=== PATIENT | female | born 1965 | race Caucasian/White ===

== ENCOUNTER 2017-01-18 04:45 | Inpatient (IN) | payer MEDICARE ==
[2017-01-18 04:45] VITALS: BMI 29.9
--- NOTE | 2017-01-18 05:09 | C.PDOC ---
History Of Present Illness <Marisa Haskins - Last Filed: 01/18/17 06:53> <Radha Angel - Last Filed: 01/21/17 16:16> 51 year old female, whose PMHx includes alcohol abuse and depression, presents to the ED requesting alcohol detox. Patient also states she has been very depressed and "needs help." Patient has been noncompliant with her prescribed psychiatric medications. 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 She denies suicidal/homicidal ideation and has no other complaints at this time. ( Marisa Haskins) History Per: Patient History/Exam Limitations: intoxication Onset/Duration Of Symptoms: Hrs (2) Current Symptoms Are (Timing): Still Present Suicide/Self Injury Attempted (Context): None Modifying Factor(s): Alcohol Associated Symptoms: Depression. denies: Suicidal Thoughts, Suicidal Plan Involuntary Hold By: None Recent travel outside of the [place]: No Additional History Per: Patient <Marisa Haskins - Last Filed: 01/18/17 06:53> <Radha Angel - Last Filed: 01/21/17 16:16> Time Seen by Provider: 01/18/17 05:01 Chief Complaint (Nursing): Substance Abuse Past Medical History Reviewed: Historical Data, Nursing Documentation, Vital Signs - Medical History PMH: Asthma, Back Problems, Depression, HTN, Hypercholesterolemia Surgical History: Back Surgery Family History: States: Unknown Family Hx - Social History Hx Tobacco Use: No Hx Alcohol Use: Yes Hx Substance Use: Yes (former opioid abuse) - Immunization History Hx Tetanus Toxoid Vaccination: No Hx Influenza Vaccination: Yes Hx Pneumococcal Vaccination: No <Marisa Haskins - Last Filed: 01/18/17 06:53> Vital Signs: Last Vital Signs Temp 97.9 F 01/21/17 15:40 Pulse 93 H 01/21/17 15:40 Resp 18 01/21/17 15:40 BP 133/79 01/21/17 15:40 Pulse Ox 98 01/21/17 15:40 - [facility] Procedures CORONAR ARTERIOGR-2 CATH (12/09/03) LEFT HEART CARDIAC CATH (12/09/03) LT HEART ANGIOCARDIOGRAM (12/09/03) Review Of Systems Psych: Positive for: Depression, Other (EtOH detox ). Negative for: Suicidal ideation <Marisa Haskins - Last Filed: 01/18/17 06:53> Physical Exam - Physical Exam Appears: Non-toxic, No Acute Distress, Other (anxious and upset, but consolable ) Skin: Normal Color, Warm, Dry Oral Mucosa: Moist, Other (alcohol on breath ) Neck: Supple Chest: Symmetrical, No Deformity, No Tenderness Cardiovascular: Rhythm Regular Respiratory: Normal Breath Sounds Extremity: Normal ROM, Capillary Refill (less than 2 seconds ) Neurological/Psych: Oriented x3, Normal Speech, Normal Cognition Gait: Steady <Marisa Haskins - Last Filed: 01/18/17 06:53> ED Course And Treatment - Laboratory Results Result Diagrams: 01/18/17 05:17 01/18/17 05:17 O2 Sat by Pulse Oximetry: 97 (on RA) Pulse Ox Interpretation: Normal Progress Note: Bloodwork and UA ordered and reviewed. Case discussed with experimental worker, Carol, who will evaluate the patient at bedside. Pt with ETOH level of 390- pending sobrietyy for psych eval <Marisa Haskins - Last Filed: 01/18/17 06:53> - Laboratory Results Result Diagrams: 01/18/17 05:17 01/18/17 05:17 <Radha Angel - Last Filed: 01/21/17 16:16> Disposition - Disposition Disposition Time: 06:55 <Marisa Haskins - Last Filed: 01/18/17 06:53> - Disposition Disposition Time: 14:53 <Radha Angel - Last Filed: 01/21/17 16:16> - Disposition Disposition: HOSPITALIZED Condition: STABLE - Clinical Impression Clinical Impression: Alcohol intoxication, Alcohol dependence - PA / GRAPHICS SPECIALIST / Resident Statement MD/DO has reviewed & agrees with the documentation as recorded. - Scribe Statement The provider has reviewed the documentation as recorded by the Scribe (Brooklyn Ornelas) <Marisa Haskins - Last Filed: 01/18/17 06:53> <Radha Angel - Last Filed: 01/21/17 16:16> - Scribe Statement All medical record entries made by the Scribe were at my direction and personally dictated by me. I have reviewed the chart and agree that the record accurately reflects my personal performance of the history, physical exam, medical decision making, and the department course for this patient. I have also personally directed, reviewed, and agree with the discharge instructions and disposition. (Marisa Haskins) Physician Patient Turnover Patient Signed Over To: Radha Angel Handoff Comments: Pending sobriety for psych evaluation <Marisa Haskins - Last Filed: 01/18/17 06:53> Addendum <Marisa Haskins - Last Filed: 01/18/17 06:53> <Radha Angel - Last Filed: 01/21/17 16:16> Addendum: 01/18/17 08:15 Patient sleeping, arousable to verbal stimuli - pending sobriety. 01/18/17 13:45 Patient awake, alert & oriented. S/P PO meal. Breathalyzer 64. Spoke with crisis counselor, they will come evaluate patient. 01/18/17 14:50 Patient accepted for alcohol detox admission by Dr. Mathew. (Radha Angel)
[2017-01-18 05:19] LABS: BASO % 0.7 % (0.0-2.0); HEMATOCRIT 40.5 % (34.0-47.0); LYMPH # 1.6 K/uL (1.0-4.3); LYMPH % 44.6 % (20.0-40.0); MEAN CORPUSCULAR HEMOGLOBIN 30.1 pg (27.0-31.0); MEAN CORPUSCULAR HGB CONC 32.7 g/dL (33.0-37.0); MEAN PLATELET VOLUME 7.2 fL (7.2-11.7); MONO % 16.9 % (0.0-10.0); RED CELL DISTRIBUTION WIDTH 16.3 % (11.5-14.5); WHITE BLOOD COUNT 3.5 K/uL (4.8-10.8)
[2017-01-18 05:20] LABS: MONO # 0.6 K/uL (0.0-0.8)
[2017-01-18 05:30] LABS: RBC URINE 1 /hpf (0-3); URINE BILIRUBIN NEGATIVE (NEGATIVE); URINE BLOOD NEGATIVE (NEGATIVE); URINE COLOR Yellow (YELLOW); URINE GLUCOSE (UA) NORMAL (Normal); URINE KETONE NEGATIVE (NEGATIVE); URINE LEUKOCYTE ESTERASE 1+ Leu/uL (Negative); URINE PROTEIN NEGATIVE (NEGATIVE); WBC URINE 4 /hpf (0-5)
[2017-01-18 05:41] LABS: ALB/GLOB RATIO 1.4 (1.0-2.1); ALKALINE PHOSPHATASE 87 U/L (38-126); ALT/SGPT 102 U/L (9-52); AST/SGOT 87 U/L (14-36); BILIRUBIN,TOTAL 0.6 mg/dL (0.2-1.3); BLOOD UREA NITROGEN 11 mg/dL (7-17); CALCIUM 8.7 mg/dl (8.6-10.4); CARBON DIOXIDE 26 mmol/L (22-30); CHLORIDE 107 mmol/L (98-107); GFR AFRICAN-AMERICAN > 60; GLUCOSE,RANDOM 95 mg/dL (65-105); POTASSIUM 3.4 mmol/L (3.6-5.2); SODIUM 148 mmol/L (132-148); TOTAL PROTEIN 7.8 g/dL (6.3-8.3)
[2017-01-18 06:42] LABS: ALCOHOL SERUM 392 mg/dl (0-10)
[2017-01-18] MEDS: Multiple Vitamins Tab PO SCH (16:24)
--- NOTE | 2017-01-18 19:04 | PCM.BM ---
<Rizwana Medina - Last Filed: 01/18/17 19:03> Treatment Plan Problems - Problems identified on initial assessmt Potential for alcohol withdrawal Date Initiated: 01/18/17 Time Initiated: 19:04 Assessment reference: NA Status: Active Priority: 1 Treatment assets and liabiliti Patient Assests: cooperative, ADL independent, negotiates basic needs, cognitively intact Patient Liabilities: substance abuse (ETOH) - Milieu Protocol Maintain good personal hygiene: daily Encourage regular showers, daily Remind patient to perform daily oral care, daily Assist patient to perform ADL's Maintain personal safety: every shift Educate patient to report safety concerns to staff, every shift Monitor environment for contraband/sharps Medication safety: Monitor for expected outcome, potential side effects: every shift, Assess barriers to learning: every shift, Assess readiness for medication education: every shift <Brunilda Elizabeth - Last Filed: 01/19/17 15:23> Family Contact Family involvement: Famliy/SO not involved Family contact: Patient declines to allow family contact at present - Goals for Treatment Patient goals for treatment: Complete detox and attend [facility] in [place], [place]. Discharge/Continuing Care - Education Needs Education Needs: Patient Medication, Patient Diagnosis/Disease Process, Patient Coping Skills, Patient Anger Management skills, Patient Placement options, Patient Community resources - Discharge Discharge Criteria: No longer exhibiting s/s of withdrawal, Reduction of target symptoms Discharge to:: Home, With Family - Treatment Team Participation Patient/Family/SO Statement: 01/19/17 15:24 "I wanna go to [facility]." Discussed with Family/SO: No Was Patient/Family/SO present at Treatment Team Meeting: Yes <Lety Mathew - Last Filed: 01/20/17 11:43> - Diagnosis (1) Alcohol use disorder, severe, dependence Status: Acute Interventions: 01/20/17 11:43 * Assess 7x/week regarding severity of withdrawal * Educate regarding risks, benefits, side effects and alternatives of medications * Use Motivational Interviewing for abstinence * Use CBT for relapse prevention * Medication management for withdrawal symptoms * Encourage medication assisted treatment *
[2017-01-19] MEDS: Multiple Vitamins Tab PO SCH (10:34)
--- NOTE | 2017-01-19 14:35 | PCM.PSYCH ---
Initial Psychiatric Evaluation - Initial Psychiatric Evaluation Type of Admission: Voluntary Legal Status: Capacity Chief Complaint (in patient's own words): "I want to stop drinking" History of Present Illness and Precipitating Events: This is a 57 year old female who lives alone. She is with one adult daughter (age 35). She is unemployed and receives disability for financial support. Patient reports alcohol use, "3 big bottles of whiskey or estefania." She states, "I drank just socially at parties until 2014, then I really started to drink more." She denies any other drug use. She reports tobacco use at 1 ppd. Patient reports increased feelings of anxiety and some depression at times, stating "I cry a lot recently and don't know why." She states she feels isolated and cannot sleep. She denies any auditory or visual hallucinations. She denies any suicidal or homicidal ideations. She hopes to attend an IOP program after leaving detox. Past medical history: HTN, HLD Past psychiatric history: anxiety, depression Family psychiatric history: denies Family substance use: daughter drinks socially, brother drinks socially Current Medications: Active Medications Generic Name Dose Route Start Last Admin Trade Name Freq PRN Reason Stop Dose Admin Chlordiazepoxide 25 mg 01/18/17 18:00 01/19/17 12:32 Librium PO 01/22/17 17:59 25 mg Q6 [facility] Administration Taper Chlordiazepoxide 25 mg 01/18/17 15:59 01/18/17 16:24 Librium PO 25 mg Q4H PRN Administration Alcohol Withdrawal Clonidine HCl 0.1 mg 01/18/17 15:59 01/19/17 13:33 Catapres PO 0.1 mg Q4H PRN Administration Symptoms of alcohol withdrawl Folic Acid 1 mg 01/18/17 16:00 01/19/17 10:34 Folic Acid PO 1 mg DAILY [facility] Administration Gabapentin 100 mg 01/19/17 14:00 01/19/17 13:37 Neurontin PO 100 mg TID [facility]AI Administration Hydroxyzine HCl 25 mg 01/18/17 18:41 01/18/17 21:25 Atarax PO 25 mg Q4H PRN Administration Anxiety Ibuprofen 600 mg 01/18/17 18:41 Motrin Tab PO Q6H PRN Pain, moderate (4-7) Multivitamins 1 tab 01/18/17 16:00 01/19/17 10:34 Hexavitamin PO 1 tab DAILY [facility] Administration Nicotine 1 patch 01/18/17 15:50 01/19/17 10:35 Nicoderm Cq TD 1 patch DAILY [facility] Administration Thiamine HCl 100 mg 01/18/17 16:00 01/19/17 10:34 Vitamin B1 Tab PO 100 mg DAILY [facility] Administration Trazodone HCl 100 mg 01/19/17 10:30 Desyrel PO HS PRN Insomnia Past Psychiatric History - Past Psychiatric History Pertinent Medical Hx (Current Medical&Sleep Prob, Allergies): Allergies Allergy/AdvReac Type Severity Reaction Status Date / Time ibuprofen AdvReac ANAPHYLAXIS Verified 01/18/17 04:56 oxycodone HCl AdvReac ANAPHYLAXIS Verified 01/18/17 04:56 [From OxyContin] Unknown Cholesterol Med 01/18/17 Unknown Hypertension Med 01/18/17 Unknown Sleep Aid 01/18/17 Review of Systems - Review of Systems All systems: reviewed and no additional remarkable complaints except - Neurological Neurological: absent: Convulsions, Tremor - Psychiatric Psychiatric: Anxiety, Depression, Hopelessness, Irritability. absent: Auditory Hallucinations, Homicidal Ideation, Suicidal Ideation, Visual Hallucinations Mental Status Examination - Personal Presentation Personal Presentation: Looks older than stated age - Affect Affect: Constricted, Depressed - Motor Activity Motor Activity: Calm - Reliability in Providing Information Reliability in Providing Information: Fair - Speech Speech: Organized - Mood Mood: Depressed, Anxious - Formal Thought Process Formal Thought Process: No Impairment - Obsessions/Compulsions Obsessions: No Compulsions: No - Cognitive Functions Orientation: Person, Place, Situation, Time Sensorium: Alert Attention/Concentration: Attentive Abstract Thinking: [place] Estimate of Intelligence: Average Judgement: Intact, as evidence by: Insight regarding need for hospitalization Memory: Recent intact, as evidence by: Ability to recall events of the day, Remote intact, as evidenced by: Abilit to recall sig. life events - Risk Risk: Diminished functioning - Strength & Assets Inventory Strength & Assets Inventory: Family support, Cooperative - Limitations Limitations: Other DSM 5 DX - DSM 5 DSM 5 Diagnosis: Alcohol use disorder, severe Alcohol withdrawal Tobacco use disorder, severe - Recommended/Plan of Treatment Treatment Recommendations and Plan of Treatment: Librium detox Gabapentin for augmentation As needed medications Attend groups and activities Supportive therapy and psychoeducation ME for abstinence CBT for relapse prevention Encourage MAT Refer to rehab or IOP, and self-help groups. Smoking cessation with ME Nicotine patch 32 min Projected ELOS: 4-5 days Prognosis: Good with treatment Discharge Plan and Discharge Criteria: No withdrawal symptoms Refer to rehab - Smoking Cessation Smoking Cessation Initiated: Yes
[2017-01-19] MEDS: Aluminum Hydroxide/Magnesium Hydroxide Susp (30 mL) PO PRN (19:18)
[2017-01-20] MEDS: Multiple Vitamins Tab PO SCH (09:18)
--- NOTE | 2017-01-20 09:26 | PCM.PYCHPN ---
Psychiatric Progress Note - Psychiatric Progress Note Patient seen today, length of contact: 15 min Patient Chief Complaint: I am still withdrawing.' Problems Identified/Issues Discussed: Patient seen and evaluated, chart reviewed and discussed with the nurse. Patient still reports withdrawal symptoms including anxiety, headaches, and sweating. She reports irritable mood but denies any feelings of hopelessness and helplessness. She denies any SI/HI/AVH. Patient remained isolated, and withdrawn. She is taking medication and denies any side effects. She needs more time for stabilization. Supportive therapy and psychoeducation were given. Medication Change: Yes (Librium taper) Medical Record Reviewed: Yes Mental Status Examination - Cognitive Function Orientation: Person, Place, Situation, Time Memory: Intact Attention: WNL Concentration: WNL Association: WNL Fund of Knowledge: Poor - Mood Mood: Depressed, Anxious - Affect Affect: Constricted, Depressed - Speech Speech: Soft - Formal Thought Process Formal Thought Process: No Impairment - Suicidal Ideation Suicidal Ideation: No - Homicidal Ideation Homicidal Ideation: No Goal/Treatment Plan - Goal/Treatment Plan Need for Continued Stay: Severe depression anxiety, Severe functional impairment Progress Toward Problem(s) and Goals/Treatment Plan: Alcohol use disorder, severe Alcohol withdrawal Tobacco use disorder, severe Librium detox Gabapentin for augmentation As needed medications Attend groups and activities Supportive therapy and psychoeducation CA for abstinence CBT for relapse prevention Encourage MAT Refer to rehab or IOP, and self-help groups. Smoking cessation with CA Nicotine patch - Smoking Cessation Smoking Cessation Initiated: No
[2017-01-20] MEDS: Aluminum Hydroxide/Magnesium Hydroxide Susp (30 mL) PO PRN (21:00)
[2017-01-21 06:35] VITALS: RESP 18
[2017-01-21] MEDS ORDERED: Ergocalciferol 50,000 Intl Units Cap PO SCH (10:00)
[2017-01-21] MEDS: Multiple Vitamins Tab PO SCH (10:23)
--- NOTE | 2017-01-21 19:07 | PCM.PYCHPN ---
Psychiatric Progress Note - Psychiatric Progress Note Patient seen today, length of contact: 15 min Patient Chief Complaint: I am feeling much better. Problems Identified/Issues Discussed: Patient seen, chart reviewed, case discussed with the staff. Issues related to illness and treatment were discussed with the patient and staff. Patient reported compliant with treatment with no adverse effects. Tolerating treatment very well. Aftercare discussed with the patient. At the time of evaluation, patient was awake, alert and oriented 3, had no delusions, no auditory or visual hallucinations, no suicidal ideations or homicidal ideations. Medical Problems: Hypertension HDL Diagnostic Results: Reviewed DSM 5 Symptoms Update: Improving with treatment Medication Change: No Medical Record Reviewed: Yes Mental Status Examination - Cognitive Function Orientation: Person, Place, Situation, Time Memory: Intact Attention: WNL Concentration: WNL Association: WNL Fund of Knowledge: [facility] Decription of patient's judgement and insights: Fair - Mood Mood: Neutral - Affect Affect: Other (Appropriate) - Speech Speech: Soft - Formal Thought Process Formal Thought Process: No Impairment Psychotic Thoughts and Behaviors: None - Suicidal Ideation Suicidal Ideation: No - Homicidal Ideation Homicidal Ideation: No Goal/Treatment Plan - Goal/Treatment Plan Need for Continued Stay: Remain at risks for inpatient hospitalization, Discharge may exacerbated symptoms, Severe functional impairment Progress Toward Problem(s) and Goals/Treatment Plan: Patient education Supportive therapy Continue treatment as before [facility] for follow-up care after discharge from the hospital Estimated Date of D/C: 01/22/17 - Smoking Cessation Smoking Cessation Initiated: Yes
[2017-01-22] MEDS: Multiple Vitamins Tab PO SCH (09:15)
--- NOTE | 2017-01-22 09:44 | PCM.PYCHDC ---
Mental Status Examination - Mental Status Examination Orientation: Person, Place, Situation, Time Memory: Intact Mood: Anxious Affect: Constricted Speech: Appropriate Attention: WNL Concentration: Poor Association: WNL Fund of Knowledge: WNL Formal Thought Process: No Impairment Suicidal Ideation: No Current Homicidal Ideation?: No Discharge Summary - Discharge Note Reason for Hospitalization: Alcohol detox Consultations:: List each consultation separately and include: 1. Reason for request. 2. Findings. 3. Follow-up Summary of Hospital Course include:: 1. Description of specific treatment plan utilized for patients during their course of treatmen. 2. Summarize the time- course for resolution of acute symptoms and/or regressed behaviors. 3. Describe issues identified and worked on during hospitalization. 4. Describe medication utilized. 5. Describe medical problems identified and treated. 6. Reassessment of suicide risk Summary of Hospital Course: She s seen today, chart reviewed and case discussed On admission: This is a 57 year old female who lives alone. She is with one adult daughter (age 35). She is unemployed and receives disability for financial support. Patient reports alcohol use, "3 big bottles of whiskey or estefania." She states, "I drank just socially at parties until 2014, then I really started to drink more." She denies any other drug use. She reports tobacco use at 1 ppd. Patient reports increased feelings of anxiety and some depression at times, stating "I cry a lot recently and don't know why." She states she feels isolated and cannot sleep. She denies any auditory or visual hallucinations. She denies any suicidal or homicidal ideations. She hopes to attend an IOP program after leaving detox. Past medical history: HTN, HLD Past psychiatric history: anxiety, depression Family psychiatric history: denies Family substance use: daughter drinks socially, brother drinks socially Hospital course: The pt was admitted and started on treatment with psychotherapy, support, psychoeducation and medications. VA and CBT used. The pt attended groups and activities, as well as milieu therapy. All the risks and benefits of medications are discussed and the patient understood and agreed. The pt improved with the treatments provided. After care discussed with the patient. She will attend AA and IOP but the appointment is in February ([facility]) - Final Diagnosis (DSM 5) Condition upon Discharge: STABLE DSM 5: Alcohol use disorder, severe Alcohol withdrawal Tobacco use disorder, severe Disposition: HOME/ ROUTINE Follow-up Treatment Plan: Continue below medications after discharge. Follow after care plan as discussed. Use relapse prevention skills Return to ER or call 911 if suicidal, homicidal or symptoms relapse. Stay away from stress, alcohol and drugs. See primary doctor regularly and get labs. Prescriptions/Medication Reconciliation: Ergocalciferol [Drisdol 50,000 Intl Units Cap] 1 cap PO Q7D #4 cap Mirtazapine [Remeron] 15 mg PO HS #30 tab Multivitamins [Hexavitamin] 1 tab PO DAILY #30 tab Nicotine 21 mg/24 hr [Nicoderm Cq] 1 patch TD DAILY #14 patch traZODone [Desyrel] 100 mg PO HS PRN #30 tab PRN Reason: Insomnia - Smoking Cessation Smoking Cessation Medication prescribed: Yes - Antipsychotic Medications Pt discharged on 2 or more routine antipsychotic medications: No
[2017-01-22 11:05] VITALS: BP 116/80; PULSE 74; TEMP 97.6; O2SAT 100
== END 2017-01-22 11:15 | disposition home or self-care (01) | DRG 897 ==
LOC: C.ER 04:45 → C.7D 14:53
PROVIDERS: ADMIT Psychiatry & Neurology Psychiatry; ATTEND Psychiatry & Neurology Psychiatry
PROC: HZ2ZZZZ Detoxification Services for Substance Abuse Treatment (ICD-10-PCS; principal; 2017-01-18)
PROC: GZ56ZZZ Individual Psychotherapy, Supportive (ICD-10-PCS; 2017-01-18)
DX: F10.230 Alcohol dependence with withdrawal, uncomplicated (principal); F10.220 Alcohol dependence with intoxication, uncomplicated; E78.5 Hyperlipidemia, unspecified; F17.200 Nicotine dependence, unspecified, uncomplicated; F41.9 Anxiety disorder, unspecified; I10 Essential (primary) hypertension; J45.909 Unspecified asthma, uncomplicated; Y90.8 Blood alcohol level of 240 mg/100 ml or more

== ENCOUNTER 2017-04-09 12:14 | Inpatient (IN) | payer MEDICARE ==
[2017-04-09 12:15] VITALS: BMI 29.9
[2017-04-09 15:23] LABS: BASO % 0.3 % (0.0-2.0); EOS % 0.2 % (0.0-4.0); HEMOGLOBIN 13.4 g/dL (11.0-16.0); LYMPH # 1.3 K/uL (1.0-4.3); LYMPH % 20.8 % (20.0-40.0); MEAN CORPUSCULAR HEMOGLOBIN 29.6 pg (27.0-31.0); MEAN CORPUSCULAR HGB CONC 33.5 g/dL (33.0-37.0); MEAN PLATELET VOLUME 8.6 fL (7.2-11.7); MONO # 0.3 K/uL (0.0-0.8); MONO % 4.2 % (0.0-10.0); NEUT # 4.6 K/uL (1.8-7.0); NEUT % 74.5 % (50.0-75.0); RBC 4.52 Mil/uL (3.80-5.20); RED CELL DISTRIBUTION WIDTH 14.3 % (11.5-14.5)
[2017-04-09 15:24] LABS: MEAN CELL VOLUME 88.2 fL (81.0-99.0); WHITE BLOOD COUNT 6.2 K/uL (4.8-10.8)
[2017-04-09 15:34] LABS: GRANULAR CAST 4 /lpf (0-1); SQUAMOUS EPITHIAL 1 /hpf (0-5); URINE BACTERIA RARE (<OCC); URINE BILIRUBIN NEGATIVE (NEGATIVE); URINE BLOOD NEGATIVE (NEGATIVE); URINE CLARITY Hazy (Clear); URINE COLOR Amber (YELLOW); URINE GLUCOSE (UA) NORMAL (Normal); URINE LEUKOCYTE ESTERASE NEG Leu/uL (Negative); URINE NITRATE NEGATIVE (NEGATIVE); URINE PROTEIN 2+ mg/dL (NEGATIVE)
[2017-04-09 15:38] LABS: ALB/GLOB RATIO 1.2 (1.0-2.1); ALBUMIN 4.6 g/dL (3.5-5.0); ALT/SGPT 33 U/L (9-52); AST/SGOT 41 U/L (14-36); BLOOD UREA NITROGEN 19 mg/dL (7-17); CALCIUM 9.1 mg/dl (8.6-10.4); GFR AFRICAN-AMERICAN > 60; GFR NON-AFRICAN AMERICAN > 60
[2017-04-09 15:49] LABS: BARBITURATES, UR NEGATIVE (NEGATIVE); BENZODIAZEPINES, UR NEGATIVE (NEGATIVE); OPIATES, UR NEGATIVE (NEGATIVE); PHENCYCLIDINE, UR NEGATIVE (NEGATIVE)
--- NOTE | 2017-04-09 17:07 | C.PDOC ---
History Of Present Illness 51 year old female presents to the emergency department requesting detox from alcohol. States she usually drinks a large bottle of estefania every day. Patient offers no physical complaints. Denies suicidal or homicidal ideation. Time Seen by Provider: 04/09/17 14:39 Chief Complaint (Nursing): Substance Abuse History Per: Patient History/Exam Limitations: no limitations Onset/Duration Of Symptoms: Days Current Symptoms Are (Timing): Still Present Modifying Factor(s): Alcohol Past Medical History Reviewed: Historical Data, Nursing Documentation, Vital Signs Vital Signs: Last Vital Signs Temp 98 F 04/09/17 17:38 Pulse 134 H 04/09/17 17:38 Resp 18 04/09/17 17:38 BP 130/80 04/09/17 17:38 Pulse Ox 98 04/09/17 17:38 - Medical History PMH: Anxiety, Asthma, Back Problems, Depression, HTN, Hypercholesterolemia Denies: Diabetes, Hepatitis, HIV, Seizures, Sexually Transmitted Disease Surgical History: Back Surgery - [facility] Procedures CORONAR ARTERIOGR-2 CATH (12/09/03) DETOXIFICATION SERVICES FOR SUBSTANCE ABUSE TREATMENT (01/18/17) INDIVIDUAL PSYCHOTHERAPY, SUPPORTIVE (01/18/17) LEFT HEART CARDIAC CATH (12/09/03) LT HEART ANGIOCARDIOGRAM (12/09/03) Family History: States: No Known Family Hx - Social History Hx Tobacco Use: No Hx Alcohol Use: Yes Hx Substance Use: No - Immunization History Hx Tetanus Toxoid Vaccination: No Hx Influenza Vaccination: No Hx Pneumococcal Vaccination: No Review Of Systems Except As Marked, All Systems Reviewed And Found Negative. Psych: Positive for: Other (alcohol abuse). Negative for: Suicidal ideation ( or homicidal) Physical Exam - Physical Exam Appears: Non-toxic, No Acute Distress, Other ( female) Skin: Normal Color, Warm, Dry Head: Atraumatic, Normacephalic Eye(s): bilateral: Normal Inspection, PERRL, EOMI Nose: Normal Oral Mucosa: Moist Neck: Normal ROM, Supple Chest: Symmetrical Cardiovascular: Rhythm Regular Respiratory: Normal Breath Sounds, No Accessory Muscle Use Gastrointestinal/Abdominal: Normal Exam, Soft, No Tenderness Extremity: Bilateral: Atraumatic, Normal Color And Temperature, Normal ROM Neurological/Psych: Oriented x3, Normal Speech ED Course And Treatment - Laboratory Results Result Diagrams: 04/09/17 15:19 04/09/17 15:19 Lab Interpretation: Abnormal (+ elev etoh, + glucose) Urine POC: Negative (tox neg.) O2 Sat by Pulse Oximetry: 96 (RA) Pulse Ox Interpretation: Normal Reevaluation Time: 17:07 Reassessment Condition: Improved - Physician Consult Information Outcome Of Conversation: 1700: d/w Crisis, ok to admit. Understand pt with elev glu in DM range, reccommend ordering Hgb A1C and starting Metformin 1000 mg twice a day with meals. BID/TID fingersticks and tracking reccommended. Medical Decision Making Medical Decision Making: Initial Impression: alcohol abuse Time: 15:03 Initial Plan: * Labs * Chest X-ray * Librium 100 mg PO * Crisis evaluation Clinical Impression: new Dx DM Medical Consult may be requested to design and supervise DM regimen as inpatient and facilitate bridging care to outpatient. Disposition Doctor Will See Patient In The: Hospital Counseled Patient/Family Regarding: Studies Performed, Diagnosis - Disposition Disposition: HOSPITALIZED Disposition Time: 17:08 Condition: GOOD - Clinical Impression Clinical Impression: Alcohol dependence, Diabetes - Scribe Statement The provider has reviewed the documentation as recorded by the Darren Dang Provider Attestation: All medical record entries made by the Darren were at my direction and personally dictated by me. I have reviewed the chart and agree that the record accurately reflects my personal performance of the history, physical exam, medical decision making, and the department course for this patient. I have also personally directed, reviewed, and agree with the discharge instructions and disposition.
--- NOTE | 2017-04-09 20:58 | PCM.BM ---
<Jumana Bunn - Last Filed: 04/09/17 20:56> Treatment Plan Problems - Problems identified on initial assessmt Alcohol dependence Date Initiated: 04/09/17 Time Initiated: 21:10 Assessment reference: NA Status: Active Treatment assets and liabiliti Patient Assests: cooperative, ADL independent, negotiates basic needs, cognitively intact - Milieu Protocol Maintain good personal hygiene: daily Encourage regular showers, daily Remind patient to perform daily oral care, daily Assist patient to perform ADL's Maintain personal safety: every shift Educate patient to report safety concerns to staff, every shift Monitor environment for contraband/sharps Medication safety: Monitor for expected outcome, potential side effects: every shift, Assess barriers to learning: every shift, Assess readiness for medication education: every shift <Brunilda Elizabeth - Last Filed: 04/11/17 08:12> Family Contact Family involvement: Famliy/SO not involved - Goals for Treatment Patient goals for treatment: Complete detox and transtion to outpatient treatment. Discharge/Continuing Care - Education Needs Education Needs: Patient Medication, Patient Diagnosis/Disease Process, Patient Coping Skills, Patient Anger Management skills, Patient Placement options, Patient Community resources - Discharge Discharge Criteria: No longer exhibiting s/s of withdrawal, Reduction of target symptoms Discharge to:: Home - Treatment Team Participation Patient/Family/SO Statement: 04/11/17 08:13 "I want to try outpatient counseling after detox." Discussed with Family/SO: No Was Patient/Family/SO present at Treatment Team Meeting: Yes <Lety Mathew - Last Filed: 04/11/17 22:20> - Diagnosis (1) Alcohol use disorder, severe, dependence Status: Acute Interventions: 04/11/17 22:20 * Assess 7x/week regarding severity of withdrawal * Educate regarding risks, benefits, side effects and alternatives of medications * Use Motivational Interviewing for abstinence * Use CBT for relapse prevention * Medication management for withdrawal symptoms * Encourage medication assisted treatment *
[2017-04-10] MEDS: Multiple Vitamins Tab PO SCH (09:36)
[2017-04-10] MEDS ORDERED: Ergocalciferol 50,000 Intl Units Cap PO SCH (10:30)
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
[2017-04-11] MEDS: Multiple Vitamins Tab PO SCH (09:15)
[2017-04-11] MEDS ORDERED: Pneumococcal 23-Valent Vaccine IM ONE (10:00)
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
[2017-04-12 04:12] VITALS: RESP 18
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
[2017-04-12 09:04] VITALS: BP 108/73; PULSE 98; TEMP 97.5; O2SAT 99
[2017-04-12] MEDS: Multiple Vitamins Tab PO SCH (09:30)
[2017-04-12] MEDS ORDERED: Influenza Vaccine 60 mcg/0.5 mL SYR (4YR UP) IM ONE (10:15)
== END 2017-04-12 10:45 | disposition home or self-care (01) | DRG 895 ==
LOC: C.ER 12:14 → C.7D 17:10
PROVIDERS: ADMIT Psychiatry & Neurology Psychiatry; ATTEND Psychiatry & Neurology Psychiatry
PROC: HZ2ZZZZ Detoxification Services for Substance Abuse Treatment (ICD-10-PCS; principal; 2017-04-09)
PROC: HZ59ZZZ Individual Psychotherapy for Substance Abuse Treatment, Supportive (ICD-10-PCS; 2017-04-09)
PROC: HZ46ZZZ Group Counseling for Substance Abuse Treatment, Psychoeducation (ICD-10-PCS; 2017-04-09)
PROC: GZ3ZZZZ Medication Management (ICD-10-PCS; 2017-04-09)
DX: F10.230 Alcohol dependence with withdrawal, uncomplicated (principal); F33.2 Major depressive disorder, recurrent severe without psychotic features; F17.210 Nicotine dependence, cigarettes, uncomplicated; E11.9 Type 2 diabetes mellitus without complications; I10 Essential (primary) hypertension; J45.909 Unspecified asthma, uncomplicated; E78.00 Pure hypercholesterolemia, unspecified; G47.00 Insomnia, unspecified

== ENCOUNTER 2017-11-02 17:59 | Inpatient (IN) | payer MEDICARE ==
[2017-11-02 18:06] VITALS: BMI 41.5
[2017-11-02 20:41] LABS: BASO % 0.3 % (0.0-2.0); EOS % 0.5 % (0.0-4.0); HEMOGLOBIN 13.9 g/dL (11.0-16.0); LYMPH # 2.1 K/uL (1.0-4.3); MEAN CORPUSCULAR HEMOGLOBIN 28.9 pg (27.0-31.0); MEAN CORPUSCULAR HGB CONC 33.7 g/dL (33.0-37.0); MEAN PLATELET VOLUME 7.6 fL (7.2-11.7); MONO # 0.3 K/uL (0.0-0.8); MONO % 4.5 % (0.0-10.0); NEUT # 4.7 K/uL (1.8-7.0); NEUT % 65.7 % (50.0-75.0); NRBC % 0.1 % (0.0-2.0); RBC 4.82 Mil/uL (3.80-5.20); RED CELL DISTRIBUTION WIDTH 15.8 % (11.5-14.5); WHITE BLOOD COUNT 7.2 K/uL (4.8-10.8)
[2017-11-02 20:42] LABS: SQUAMOUS EPITHIAL 11 /hpf (0-5); URINE BACTERIA FEW (<OCC); URINE BILIRUBIN NEGATIVE (NEGATIVE); URINE BLOOD 1+ (NEGATIVE); URINE CLARITY Hazy (Clear); URINE COLOR Yellow (YELLOW); URINE GLUCOSE (UA) NORMAL (Normal); URINE HYALINE CAST 0-2 /lpf (0-2); URINE LEUKOCYTE ESTERASE 2+ Leu/uL (Negative); URINE PROTEIN 1+ mg/dL (NEGATIVE); URINE UROBILINOGEN NORMAL mg/dL (0.2-1.0)
[2017-11-02 20:43] LABS: HCG,QUALITATIVE URINE NEGATIVE (NEGATIVE); MEAN CELL VOLUME 85.8 fL (81.0-99.0)
[2017-11-02 20:53] LABS: ALB/GLOB RATIO 1.4 (1.0-2.1); ALBUMIN 4.5 g/dL (3.5-5.0); ALT/SGPT 28 U/L (9-52); AST/SGOT 40 U/L (14-36); BLOOD UREA NITROGEN 14 mg/dL (7-17); CALCIUM 9.3 mg/dl (8.6-10.4); GFR NON-AFRICAN AMERICAN > 60
[2017-11-02 21:12] LABS: BARBITURATES, UR NEGATIVE (NEGATIVE); BENZODIAZEPINES, UR NEGATIVE (NEGATIVE); OPIATES, UR NEGATIVE (NEGATIVE); PHENCYCLIDINE, UR NEGATIVE (NEGATIVE)
--- NOTE | 2017-11-02 21:27 | C.PDOC ---
History Of Present Illness 51 y/o female presents to the ED requesting detox for alcohol. On arrival patient appears intoxicated. States her last drink was just [employer]. Otherwise no physical complaints at this time. She denies any SI/HI. Time Seen by Provider: 11/02/17 19:42 Chief Complaint (Nursing): Psychiatric Evaluation History Per: Patient History/Exam Limitations: intoxication Onset/Duration Of Symptoms: Days Current Symptoms Are (Timing): Still Present Modifying Factor(s): Alcohol Past Medical History Reviewed: Historical Data, Nursing Documentation, Vital Signs Vital Signs: Last Vital Signs Temp 98.1 F 11/02/17 18:06 Pulse 115 H 11/02/17 22:11 Resp 18 11/02/17 22:11 BP 125/86 11/02/17 22:11 Pulse Ox 98 11/02/17 22:11 - Medical History PMH: Anxiety, Asthma, Back Problems, Depression, HTN, Hypercholesterolemia Denies: Diabetes, Hepatitis, HIV, Seizures, Sexually Transmitted Disease Surgical History: Back Surgery - [facility] CORONAR ARTERIOGR-2 CATH (12/09/03) DETOXIFICATION SERVICES FOR SUBSTANCE ABUSE TREATMENT (04/09/17) GROUP [employer] FOR SUBSTANCE ABUSE TREATMENT, PSYCHOEDUCATION (04/09/17) INDIV PSYCHOTHERAPY FOR SUBSTANCE ABUSE TREATMENT, SUPPORT (04/09/17) INDIVIDUAL PSYCHOTHERAPY, SUPPORTIVE (01/18/17) LEFT HEART CARDIAC CATH (12/09/03) LT HEART ANGIOCARDIOGRAM (12/09/03) MEDICATION MANAGEMENT (04/09/17) Family History: States: Unknown Family Hx - Social History Hx Tobacco Use: No Hx Alcohol Use: Yes Hx Substance Use: Yes - Immunization History Hx Tetanus Toxoid Vaccination: No Hx Influenza Vaccination: No Hx Pneumococcal Vaccination: No Review Of Systems Constitutional: Negative for: Fever Cardiovascular: Negative for: Chest Pain Respiratory: Negative for: Shortness of Breath Gastrointestinal: Negative for: Vomiting, Abdominal Pain Psych: Positive for: Other (alcohol abuse). Negative for: Withdrawal Physical Exam - Physical Exam Appears: Non-toxic, No Acute Distress, Other (Appears intoxicated) Skin: Normal Color, Warm, Dry Head: Atraumatic, Normacephalic Eye(s): bilateral: Normal Inspection, PERRL, EOMI Nose: Normal Oral Mucosa: Moist Neck: Normal ROM Chest: Symmetrical Cardiovascular: Rhythm Regular Respiratory: Normal Breath Sounds, No Accessory Muscle Use Extremity: Bilateral: Atraumatic, Normal Color And Temperature, Normal ROM Neurological/Psych: Other (Slurred speech, responds to verbal stimuli) ED Course And Treatment - Laboratory Results Result Diagrams: 11/02/17 20:32 11/02/17 20:32 Lab Interpretation: Abnormal (etoh 249 H) O2 Sat by Pulse Oximetry: 96 (RA) Pulse Ox Interpretation: Normal Reevaluation Time: 23:32 Reassessment Condition: Improved - Physician Consult Information Outcome Of Conversation: 2330: d/w Crisis, ok to admit to Detox Medical Decision Making Medical Decision Making: Plan: * Labs ordered * crisis to arrange detox Disposition Doctor Will See Patient In The: Hospital Counseled Patient/Family Regarding: Studies Performed, Diagnosis - Disposition Disposition: HOSPITALIZED Disposition Time: 23:34 Condition: GOOD Forms: [facility] ([place]an) - Clinical Impression Clinical Impression: Alcohol use disorder, severe, dependence - Scribe Statement The provider has reviewed the documentation as recorded by the Scribe (Albina Dang) Provider Attestation: All medical record entries made by the Scribe were at my direction and personally dictated by me. I have reviewed the chart and agree that the record accurately reflects my personal performance of the history, physical exam, medical decision making, and the department course for this patient. I have also personally directed, reviewed, and agree with the discharge instructions and disposition.
--- NOTE | 2017-11-03 08:45 | PCM.BM ---
Treatment Plan Problems - Problems identified on initial assessmt potential of alcohol withdrawals Date Initiated: 11/03/17 Assessment reference: NA Status: Active Treatment assets and liabiliti Patient Assests: cooperative, motivated, ADL independent, negotiates basic needs, cognitively intact Patient Liabilities: live alone, financial problems, substance abuse - Milieu Protocol Maintain good personal hygiene: daily Encourage regular showers, daily Remind patient to perform daily oral care, daily Assist patient to perform ADL's Conduct patient checks and document Observation sheet: Q15 minutes Maintain personal safety: every shift Educate patient to report safety concerns to staff, every shift Monitor environment for contraband/sharps Medication safety: Monitor for expected outcome, potential side effects: every shift, Assess barriers to learning: every shift, Assess readiness for medication education: every shift
--- NOTE | 2017-11-03 09:42 | PCM.PSYCH ---
Initial Psychiatric Evaluation - Initial Psychiatric Evaluation Type of Admission: Voluntary Legal Status: Capacity Chief Complaint (in patient's own words): I relapsed on heroin.' History of Present Illness and Precipitating Events: This is a 51 years old HF, , currently unemployed, came to the [facility] to get help in alcohol detox. Pt denies any past history of any inpatient psychiatric hospitalizations, however she reports history of a couple of detoxes in the past, last detox was at few months ago. She also reports history of follow up with [facility], Dr Prasad for depression and anxiety, last follow up was last week. As per the pt she has been feeling increasingly anxious and depressed for few days and she relapsed on Alcohol, after being sober for 6 months. As per her she consumes more than 1- 3 pints of vodka daily. Pt reports that she relapsed on alcohol because of financial and residential situations. Patient reports of depressed mood, poor sleep and poor appetite. She denies any feelings of hopelessness and helplessness. She denies any suicidal ideation or any homicidal ideation. She denies any manic symptoms. She denies any auditory or visual hallucinations or any psychotic symptoms. Patient reports withdrawal symptoms including shakes, nausea, anxiety, headaches and sweating. Pt reports a hx of falls due to intoxication but denies hx of seizures and DTs. PMH: DM, HTN and Hypercholestrolimia Current Medications: Active Medications Generic Name Dose Route Start Last Admin Trade Name Freq PRN Reason Stop Dose Admin Chlordiazepoxide 25 mg 11/03/17 08:18 11/03/17 08:57 Librium PO 25 mg Q4 PRN Administration alcohol withdrawal symptoms Past Psychiatric History - Past Psychiatric History Previous Treatment History: Inpatient Pertinent Medical Hx (Current Medical&Sleep Prob, Allergies): Allergies Allergy/AdvReac Type Severity Reaction Status Date / Time ibuprofen AdvReac ANAPHYLAXIS Verified 11/02/17 18:05 oxycodone HCl AdvReac ANAPHYLAXIS Verified 11/02/17 18:05 [From OxyContin] Ergocalciferol [Drisdol 50,000 Intl Units Cap] 1 cap PO Q7D #4 cap 04/12/17 Gabapentin [Neurontin] 300 mg PO BID #60 cap 04/12/17 Mirtazapine [Remeron] 30 mg PO HS #30 tab 04/12/17 traZODone [Desyrel] 50 mg PO HS PRN #30 tab 04/12/17 Review of Systems - Review of Systems All systems: reviewed and no additional remarkable complaints except - Psychiatric Psychiatric: Anxiety, Irritability. absent: Suicidal Ideation Mental Status Examination - Personal Presentation Personal Presentation: Looks stated age - Affect Affect: Constricted - Motor Activity Motor Activity: Calm - Reliability in Providing Information Reliability in Providing Information: Fair - Speech Speech: Organized - Mood Mood: Anxious - Formal Thought Process Formal Thought Process: No Impairment - Obsessions/Compulsions Obsessions: No Compulsions: No - Cognitive Functions Orientation: Person, Place, Situation, Time Sensorium: Alert Attention/Concentration: Attentive Abstract Thinking: [place] Estimate of Intelligence: Below average Judgement: Imparied, as evidence by: Poor judgement, Imparied, as evidence by: Lack of insight into illness ( was encouraged. He admitted that he), Intact, as evidence by: Insight regarding need for hospitalization - Risk Risk: Withdrawal, Diminished functioning - Limitations Limitations: Living alone DSM 5 DX - DSM 5 DSM 5 Diagnosis: Alcohol use disorder severe Alcohol withdrawal uncomplicated Major Depressive disorder recurrent moderate - Recommended/Plan of Treatment Treatment Recommendations and Plan of Treatment: Alcohol use disorder severe CBT Psychoeducation Supportive therapy, individual therapy Use [place] for abstinence Alcohol withdrawal uncomplicated CBT Psychoeducation Supportive therapy, individual therapy Librium when necessary Start Librium taper Start folic acid/thiamine/multivitamin Major Depressive disorder recurrent moderate CBT Psychoeducation Supportive therapy, individual therapy Remeron Gabapentin - Smoking Cessation Smoking Cessation Initiated: No
[2017-11-03] MEDS ORDERED: Aluminum Hydroxide/Magnesium Hydroxide Susp (30 mL) PO PRN (09:43)
[2017-11-03] MEDS: Multiple Vitamins Tab PO SCH (10:15)
[2017-11-04] MEDS: Multiple Vitamins Tab PO SCH (09:17)
[2017-11-04] MEDS ORDERED: Ergocalciferol 50,000 Intl Units Cap PO SCH (10:00)
--- NOTE | 2017-11-04 23:34 | PCM.PYCHPN ---
Psychiatric Progress Note - Psychiatric Progress Note Patient seen today, length of contact: 16 min Patient Chief Complaint: "I need my medications" Problems Identified/Issues Discussed: The pt is seen, chart reviewed, case discussed with staff. The pt is compliant with medications and reports no side-effects. Symptoms are improving but needs more time to stabilize. After care discussed, support and psychoeducation given. Medication Change: Yes Medical Record Reviewed: Yes Mental Status Examination - Cognitive Function Orientation: Person, Place, Situation, Time Memory: Intact Attention: WNL Concentration: Poor Association: WNL Fund of Knowledge: WNL - Mood Mood: Anxious - Affect Affect: Constricted - Speech Speech: Appropriate - Formal Thought Process Formal Thought Process: No Impairment - Suicidal Ideation Suicidal Ideation: No - Homicidal Ideation Homicidal Ideation: No Goal/Treatment Plan - Goal/Treatment Plan Need for Continued Stay: Discharge may exacerbated symptoms, Severe functional impairment Progress Toward Problem(s) and Goals/Treatment Plan: Continue medications Support and psychoeducation daily Attend groups and activities daily After care planning by RAMON
[2017-11-05] MEDS: Multiple Vitamins Tab PO SCH (10:19)
--- NOTE | 2017-11-05 14:08 | PCM.PYCHPN ---
Psychiatric Progress Note - Psychiatric Progress Note Patient seen today, length of contact: 16 min Patient Chief Complaint: "I am anxious" Problems Identified/Issues Discussed: The pt is seen, chart reviewed, case discussed with staff. Support given, CBT and [place] used briefly No new symptoms reported, improving slowly and needs more time No SEs from medications, risks discussed. After care discussed Medication Change: Yes (etox changes daily) Medical Record Reviewed: Yes Mental Status Examination - Cognitive Function Orientation: Person, Place, Situation, Time Memory: Intact Attention: WNL Concentration: Poor Association: WNL Fund of Knowledge: WNL - Mood Mood: Anxious - Affect Affect: Constricted - Speech Speech: Appropriate - Formal Thought Process Formal Thought Process: No Impairment - Suicidal Ideation Suicidal Ideation: No - Homicidal Ideation Homicidal Ideation: No Goal/Treatment Plan - Goal/Treatment Plan Need for Continued Stay: Discharge may exacerbated symptoms, Severe functional impairment Progress Toward Problem(s) and Goals/Treatment Plan: Continue medications Support and psychoeducation daily Attend groups and activities daily After care planning by counselors - likely to [facility] only as she does "not like groups."
[2017-11-06] MEDS: Multiple Vitamins Tab PO SCH (10:05)
--- NOTE | 2017-11-06 11:54 | PCM.PYCHPN ---
Psychiatric Progress Note - Psychiatric Progress Note Patient seen today, length of contact: 16 min Patient Chief Complaint: I am still withdrawing.' Problems Identified/Issues Discussed: Patient seen and evaluated, chart reviewed and discussed with the nurse. Pt reports improvement in her mood, and irritability. However, she still reports withdrawal symptoms, including cramps, back pain, joint pains and anxiety. Patient is compliant with medications and denies any side effects. Symptoms are improving but pt needs more time to stabilize. Support and psychoeducation given. Medication Change: Yes Medical Record Reviewed: Yes Mental Status Examination - Cognitive Function Orientation: Person, Place, Situation, Time Memory: Intact Attention: WNL Concentration: Poor Association: WNL Fund of Knowledge: WNL - Mood Mood: Anxious - Affect Affect: Constricted - Speech Speech: Appropriate - Formal Thought Process Formal Thought Process: No Impairment - Suicidal Ideation Suicidal Ideation: No - Homicidal Ideation Homicidal Ideation: No Goal/Treatment Plan - Goal/Treatment Plan Need for Continued Stay: Discharge may exacerbated symptoms, Severe functional impairment Progress Toward Problem(s) and Goals/Treatment Plan: Alcohol use disorder severe CBT Psychoeducation Supportive therapy, individual therapy Use [place] for abstinence Alcohol withdrawal uncomplicated CBT Psychoeducation Supportive therapy, individual therapy Librium when necessary Start Librium taper Start folic acid/thiamine/multivitamin Major Depressive disorder recurrent moderate CBT Psychoeducation Supportive therapy, individual therapy Remeron Gabapentin - Smoking Cessation Smoking Cessation Initiated: No
--- NOTE | 2017-11-07 08:49 | PCM.PYCHDC ---
Mental Status Examination - Mental Status Examination Orientation: Person, Place, Situation, Time Memory: Intact Mood: Anxious Affect: Constricted Speech: Appropriate Attention: WNL Concentration: WNL Association: WNL Fund of Knowledge: WNL Formal Thought Process: No Impairment Suicidal Ideation: No Current Homicidal Ideation?: No Discharge Summary - Discharge Note Consultations:: List each consultation separately and include: 1. Reason for request. 2. Findings. 3. Follow-up Summary of Hospital Course include:: 1. Description of specific treatment plan utilized for patients during their course of treatmen. 2. Summarize the time- course for resolution of acute symptoms and/or regressed behaviors. 3. Describe issues identified and worked on during hospitalization. 4. Describe medication utilized. 5. Describe medical problems identified and treated. 6. Reassessment of suicide risk Summary of Hospital Course: The pt was admitted and started on treatment with psychotherapy, support, psychoeducation and medications. AK and CBT used. The pt attended groups and activities, as well as milieu therapy. All the risks and benefits of medications are discussed and the patient understood and agreed. The pt improved with the treatments provided. After care discussed with the patient. She will [facility] to [facility] - Final Diagnosis (DSM 5) Condition upon Discharge: GOOD Disposition: HOME/ ROUTINE Follow-up Treatment Plan: Continue below medications after discharge. Follow after care plan as discussed. Use relapse prevention skills Return to ER or call 911 if suicidal, homicidal or symptoms relapse. Stay away from stress, alcohol and drugs. See primary doctor regularly and get labs. Prescriptions/Medication Reconciliation: Gabapentin [Neurontin] 300 mg PO BID #60 cap hydrOXYzine HCl [Atarax] 25 mg PO DAILY PRN #30 tab PRN Reason: Anxiety Mirtazapine [Remeron] 30 mg PO HS #30 tab Multivitamins [Hexavitamin] 1 tab PO DAILY #30 tab
[2017-11-07] MEDS: Multiple Vitamins Tab PO SCH (09:20)
[2017-11-07 11:08] VITALS: BP 114/79; PULSE 76; RESP 18; TEMP 97.7; O2SAT 99
== END 2017-11-07 10:00 | disposition home or self-care (01) | DRG 885 ==
LOC: C.ER 17:59 → C.7D 23:34 → C.9E 23:34
PROVIDERS: ADMIT Psychiatry & Neurology Psychiatry; ATTEND Psychiatry & Neurology Psychiatry
PROC: GZHZZZZ Group Psychotherapy (ICD-10-PCS; principal; 2017-11-02)
PROC: GZ56ZZZ Individual Psychotherapy, Supportive (ICD-10-PCS; 2017-11-02)
DX: F33.1 Major depressive disorder, recurrent, moderate (principal); F10.230 Alcohol dependence with withdrawal, uncomplicated; F10.220 Alcohol dependence with intoxication, uncomplicated; Y90.8 Blood alcohol level of 240 mg/100 ml or more; E11.9 Type 2 diabetes mellitus without complications; F41.9 Anxiety disorder, unspecified; I10 Essential (primary) hypertension; J45.909 Unspecified asthma, uncomplicated; E78.00 Pure hypercholesterolemia, unspecified; Z91.81 History of falling